=== PATIENT | male | born 1990 ===

== ENCOUNTER 2017-05-30 10:15 | Emergency (ER) | payer OTHER ==
[2017-05-30 10:39] VITALS: RESP 18
[2017-05-30] MEDS ORDERED: Lidocaine 5% Patch TD STA (11:09)
--- NOTE | 2017-05-30 11:10 | C.PDOC ---
History Of Present Illness 26 yo male c/o bilateral lower back pain for 4 months, worsening in the last 2 weeks, worse with movement. pt taking diclofenac, with minimal relief. no saddle anesthesia, no numbness or tingling, no bladder or bowel dysfunction, no lower extremity weakness. no recent trauma, pt had a fall 2 yrs ago. denies abdominal pain, nausea and vomiting. Time Seen by Provider: 05/30/17 10:57 Chief Complaint (Nursing): Back Pain Past Medical History Vital Signs: Last Vital Signs Temp 98 F 05/30/17 12:43 Pulse 89 05/30/17 12:43 Resp 18 05/30/17 12:43 BP 104/65 05/30/17 12:43 Pulse Ox 96 05/30/17 12:43 - Medical History PMH: Asthma Family History: States: Unknown Family Hx - Social History Hx Alcohol Use: Yes Hx Substance Use: No - Immunization History Hx Tetanus Toxoid Vaccination: No Hx Influenza Vaccination: No Hx Pneumococcal Vaccination: No Review Of Systems Genitourinary: Negative for: Dysuria, Frequency, Hematuria Musculoskeletal: Positive for: Back Pain Physical Exam - Physical Exam Additional Physical Exam Comments: Constitutional: No acute distress. WDWN. Head: Normocephalic. Atraumatic. Eyes: PERRL. EOMI. ENT: Moist mucous membranes. Neck: Supple. Cardiovascular: Regular rate and rhythm. Chest: No tenderness. Respiratory: Clear to auscultation bilaterally. GI: Soft. Nontender. Nondistended. Normoactive bowel sounds. No rebound. No guarding. Back: Bilateral lumbar tenderness. No midline tenderness. Musculoskeletal: No tenderness or swelling of extremities. Motor strength and sensations intact 5/5. Skin: No rash. Neurologic: Alert, no focal deficit. ED Course And Treatment O2 Sat by Pulse Oximetry: 98 Medical Decision Making Medical Decision Making: p reports allergy to aspirin; pt sts his allergy is that it makes him 'feel down ', does not cause any urticaria, difficulty breathing, swelling. pt currently taking diclofenac at home with no problems. Disposition Counseled Patient/Family Regarding: Diagnosis, Need For Followup, Rx Given - Disposition Referrals: [facility] [Outside] [facility] [Outside] Disposition: HOME/ ROUTINE Disposition Time: 12:06 Condition: IMPROVED Additional Instructions: Por favor tome ibuprofen cinthia se indica con los alimentos. Aplique el parche en las reas dolorosas tyson 12 horas, luego retire tyson 12 horas antes de volver a aplicar naseem nueva (si es necesario). Para relajar los msculos, usted puede sandra juliana veces al da si est en casa, no conducir o manejar maquinaria al sandra esto. Si est trabajando, tome slo a la hora de acostarse. Contine en la clnica mdica. Llame para naseem solis. Vuelva al ER para cualquier sntoma que empeora. Evite levantar objetos pesados. Prescriptions: Cyclobenzaprine [Cyclobenzaprine HCl] 10 mg PO Q8 #9 tab Ibuprofen [Motrin] 600 mg PO TID #30 tab Lidocaine 5% [Lidoderm] 1 ea TD DAILY #6 patch Instructions: Back Pain (ED) Forms: Gen Discharge Inst Gambian, [employer] (Gambian), Work Excuse Print Language: GREENLANDIC - Clinical Impression Clinical Impression: Sprain lumbar region - Scribe Statement The provider has reviewed the documentation as recorded by the Scribe Shana Rea All medical record entries made by the Scribe were at my direction and personally dictated by me. I have reviewed the chart and agree that the record accurately reflects my personal performance of the history, physical exam, medical decision making, and the department course for this patient. I have also personally directed, reviewed, and agree with the discharge instructions and disposition.
[2017-05-30 12:44] VITALS: BP 104/65; PULSE 89; TEMP 98
[2017-06-01 18:51] VITALS: O2SAT 98
== END 2017-05-30 12:44 | disposition home or self-care (01) ==
LOC: C.ER 10:15
DX: S33.5XXA Sprain of ligaments of lumbar spine, initial encounter (principal); X50.0XXA Overexertion from strenuous movement or load, initial encounter; Y93.89 Activity, other specified; Y92.89 Other specified places as the place of occurrence of the external cause
CPT/HCPCS: 96372; 99283; J1885

== ENCOUNTER 2018-09-03 19:09 | Emergency (ER) | payer OTHER ==
[2018-09-03 19:34] VITALS: BP 113/83; PULSE 87; RESP 20; TEMP 98.2; O2SAT 97
--- NOTE | 2018-09-03 21:13 | C.PDOC ---
History Of Present Illness 27 year old male presents to the ED c/o posterior neck pain radiating to his head for the past month. Patient reports symptoms worsen with stress and while he is at work. Patient also felt a small lump of the left side of his neck. Patient denies fever, chills, earache, visual changes, sore throat, nausea, vomit, diarrhea, dizziness, weakness, numbness. Time Seen by Provider: 09/03/18 20:07 Chief Complaint (Nursing): Headache History Per: Patient History/Exam Limitations: no limitations Onset/Duration Of Symptoms: Days Current Symptoms Are (Timing): Still Present Quality: "Pain" Recent travel outside of the [place]: No Additional History Per: Patient Past Medical History Reviewed: Historical Data, Nursing Documentation, Vital Signs Vital Signs: Last Vital Signs Temp 98.2 F 09/03/18 19:30 Pulse 87 09/03/18 19:30 Resp 20 09/03/18 19:30 BP 113/83 09/03/18 19:30 Pulse Ox 97 09/03/18 19:30 - Medical History PMH: Asthma Surgical History: No Surg Hx Family History: States: Unknown Family Hx - Social History Hx Alcohol Use: Yes Hx Substance Use: No - Immunization History Hx Tetanus Toxoid Vaccination: No Hx Influenza Vaccination: No Hx Pneumococcal Vaccination: No Review Of Systems Constitutional: Negative for: Fever, Chills Eyes: Negative for: Vision Change Cardiovascular: Negative for: Chest Pain Respiratory: Negative for: Shortness of Breath Gastrointestinal: Negative for: Nausea, Vomiting, Abdominal Pain Musculoskeletal: Positive for: Neck Pain Skin: Negative for: Rash Neurological: Positive for: Headache. Negative for: Weakness, Numbness Physical Exam - Physical Exam Appears: Non-toxic, No Acute Distress Skin: Normal Color, Warm, Dry Head: Atraumatic, Normacephalic Eye(s): bilateral: Normal Inspection, PERRL, EOMI Oral Mucosa: Moist Throat: Normal, No Erythema Neck: Normal ROM, No Midline Cervical Tenderness, Paracervical Tenderness, Supple, Other (left sided small mass possibly lymphadenopathy. No chain nodes felt) Chest: Symmetrical Cardiovascular: Rhythm Regular Respiratory: Normal Breath Sounds Extremity: Normal ROM Neurological/Psych: Oriented x3, Normal Speech, Normal Cognition, Normal Motor, Normal Sensation Gait: Steady ED Course And Treatment O2 Sat by Pulse Oximetry: 97 (ON RA) Pulse Ox Interpretation: Normal Progress Note: On reassessment, patient is resting comfortably, and is in no acute distress. Patient was instructed to follow up with physician/clinic in 1-2 days for further evaluation. Disposition Counseled Patient/Family Regarding: Diagnosis, Need For Followup, Rx Given - Disposition Referrals: [facility] [Outside] Disposition: HOME/ ROUTINE Disposition Time: 21:11 Condition: STABLE Additional Instructions: PLEASE FOLLOW UP WITH PMD TAKE MEDICATIONS DIRECTED RETURN TO ER IF WORSE Prescriptions: Cyclobenzaprine [Cyclobenzaprine HCl] 10 mg PO HS #10 tab Ibuprofen [Motrin] 600 mg PO Q6H #30 tab Instructions: Cervical Muscle Strain (DC) Forms: [employer] (Nigerian) Print Language: SYRIAC - Clinical Impression Clinical Impression: Neck muscle strain - 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 - Scribe Statement The provider has reviewed the documentation as recorded by the Scribe Hunter Silva All medical record entries made by the Scribe were at my direction and personally dictated by me. I have reviewed the chart and agree that the record accurately reflects my personal performance of the history, physical exam, medical decision making, and the department course for this patient. I have also personally directed, reviewed, and agree with the discharge instructions and disposition.
== END 2018-09-03 21:25 | disposition home or self-care (01) ==
LOC: C.ER 19:09
DX: S16.1XXA Strain of muscle, fascia and tendon at neck level, initial encounter (principal); X58.XXXA Exposure to other specified factors, initial encounter